=== PATIENT | female | born 1945 | race Two or more races ===

== ENCOUNTER 2017-06-30 15:49 | Outpatient (CLI) | payer OTHER ==
[~2017-06-30 15:49] MED LIST: ASA81 MG PO; COREG CR10 MG PO; GLUCOPHAGE XR500 MG PO; LISINOPRIL20 MG PO; NEURONTIN300 MG PO; PLAVIX75 MG PO; PRAVACHOL80 MG PO; PRILOSEC10 MG PO
== END 2017-06-30 15:59 | disposition home or self-care (01) ==
LOC: RAD 15:49
DX: M25.512 Pain in left shoulder (principal)

== ENCOUNTER 2017-08-06 14:11 | Outpatient (CLI) | payer OTHER | END 2017-08-06 14:41 | disposition home or self-care (01) | LOC: NUCLEAR 14:11 | DX: E78.2 Mixed hyperlipidemia (principal); I25.2 Old myocardial infarction; I10 Essential (primary) hypertension; M85.80 Other specified disorders of bone density and structure, unspecified site ==

== ENCOUNTER 2018-02-04 06:07 | Emergency (ER) | payer OTHER ==
[~2018-02-04] VITALS: Ht 152.4 cm; Wt 65.8 kg
== END 2018-02-05 11:50 | disposition designated cancer center or children's hospital (05) ==
LOC: ER 06:07
DX: I21.4 Non-ST elevation (NSTEMI) myocardial infarction (principal); I24.9 Acute ischemic heart disease, unspecified; I10 Essential (primary) hypertension; S00.83XA Contusion of other part of head, initial encounter; W18.39XA Other fall on same level, initial encounter; Y93.89 Activity, other specified; Y92.091 Bathroom in other non-institutional residence as the place of occurrence of the external cause; Y99.8 Other external cause status
CPT/HCPCS: G0378; G0379; 93005; 93306; 70450

== ENCOUNTER 2018-02-24 11:01 | Outpatient (CLI) | payer OTHER | END 2018-02-24 11:06 | disposition home or self-care (01) | LOC: MAMO-SONO 11:01 | DX: Z12.31 Encounter for screening mammogram for malignant neoplasm of breast (principal); Z12.39 Encounter for other screening for malignant neoplasm of breast ==

== ENCOUNTER 2018-03-09 13:53 | Outpatient (CLI) | payer OTHER | END 2018-03-09 13:59 | disposition home or self-care (01) | LOC: RAD 13:53 | DX: M43.17 Spondylolisthesis, lumbosacral region (principal); M51.37 Other intervertebral disc degeneration, lumbosacral region ==

== ENCOUNTER 2018-04-05 10:01 | Outpatient (CLI) | payer OTHER | END 2018-04-05 10:14 | disposition home or self-care (01) | LOC: NUCLEAR 10:01 | DX: I51.81 Takotsubo syndrome (principal); I52 Other heart disorders in diseases classified elsewhere ==

== ENCOUNTER 2018-12-27 08:36 | Outpatient (CLI) | payer OTHER | END 2018-12-27 15:00 | disposition home or self-care (01) | LOC: RAD 08:36 → LAB 08:36 → RAD 15:00 | DX: M54.2 Cervicalgia (principal); Z12.11 Encounter for screening for malignant neoplasm of colon; I11.9 Hypertensive heart disease without heart failure; E03.8 Other specified hypothyroidism; E78.2 Mixed hyperlipidemia ==

== ENCOUNTER 2019-10-31 07:58 | Outpatient (CLI) | payer OTHER | END 2019-10-31 07:59 | disposition home or self-care (01) | LOC: SONOGRAMA 07:58 → MAMO-SONO 08:45 | PROVIDERS: ATTEND Internal Medicine Gastroenterology | DX: R10.13 Epigastric pain (principal) ==

== ENCOUNTER → 2019-10-31 08:56 | Outpatient (CLI) | payer OTHER | END | disposition home or self-care (01) | LOC: LAB 08:56 | PROVIDERS: ATTEND Internal Medicine Cardiovascular Disease | DX: D64.89 Other specified anemias (principal); R10.84 Generalized abdominal pain; E03.8 Other specified hypothyroidism; E78.49 Other hyperlipidemia; E11.9 Type 2 diabetes mellitus without complications; I10 Essential (primary) hypertension; I25.10 Atherosclerotic heart disease of native coronary artery without angina pectoris; Z13.6 Encounter for screening for cardiovascular disorders; R10.13 Epigastric pain ==

== ENCOUNTER → 2020-02-11 10:11 | Outpatient (CLI) | payer OTHER | END | disposition home or self-care (01) | LOC: LAB 10:11 | PROVIDERS: ATTEND Family Medicine Geriatric Medicine | DX: Z12.11 Encounter for screening for malignant neoplasm of colon (principal); I11.9 Hypertensive heart disease without heart failure; E78.2 Mixed hyperlipidemia; E11.42 Type 2 diabetes mellitus with diabetic polyneuropathy; J32.1 Chronic frontal sinusitis ==

== ENCOUNTER → 2020-03-21 14:54 | Outpatient (CLI) | payer OTHER | END | disposition home or self-care (01) | LOC: LAB 14:54 | PROVIDERS: ATTEND Family Medicine Geriatric Medicine | DX: N39.0 Urinary tract infection, site not specified (principal); Z12.11 Encounter for screening for malignant neoplasm of colon ==

== ENCOUNTER 2020-03-26 13:37 | Outpatient (CLI) | payer OTHER | END 2020-03-26 13:43 | disposition home or self-care (01) | LOC: MAMO-SONO 13:37 | PROVIDERS: ATTEND Family Medicine Geriatric Medicine | DX: Z12.31 Encounter for screening mammogram for malignant neoplasm of breast (principal); N64.4 Mastodynia ==

== ENCOUNTER 2022-01-15 00:06 | Emergency (ER) | payer OTHER ==
[~2022-01-15] VITALS: Ht 152.4 cm; Wt 66.7 kg
== END 2022-01-15 04:51 ==
LOC: ER 00:06
DX: I11.9 Hypertensive heart disease without heart failure (principal); E11.9 Type 2 diabetes mellitus without complications

== ENCOUNTER 2022-08-15 19:44 | Emergency (ER) | payer OTHER ==
[~2022-08-15] VITALS: Ht 152.4 cm; Wt 59.0 kg
[2022-08-15] MEDS ORDERED: ZOLOFT25 MG (19:57)
== END 2022-08-15 21:51 | disposition home or self-care (01) ==
LOC: ER 19:44
DX: K29.70 Gastritis, unspecified, without bleeding (principal); I51.81 Takotsubo syndrome

== ENCOUNTER 2022-09-15 11:50 | Outpatient (CLI) | payer OTHER ==
[~2022-09-15 11:50] MED LIST changes: +ZOLOFT25 MG
== END 2022-09-15 11:58 | disposition home or self-care (01) ==
LOC: RAD 11:50
DX: I70.0 Atherosclerosis of aorta (principal)

== ENCOUNTER 2023-02-26 11:47 | Outpatient (CLI) | payer OTHER | END 2023-02-26 11:50 | disposition home or self-care (01) | LOC: NUCLEAR 11:47 | PROVIDERS: ATTEND Specialist | DX: M81.0 Age-related osteoporosis without current pathological fracture (principal) ==

== ENCOUNTER 2023-05-28 06:12 | Inpatient (IN) | payer OTHER ==
[~2023-05-28] VITALS: Ht 162.6 cm; Wt 74.8 kg
[2023-05-28 09:49] LABS: HEMATOCRIT 36.9 % (36.0-45.00); HEMOGLOBIN 12.3 g/dL (12.0-15.00); MEAN CELL VOLUME 86.7 fL (80.00-100.00); MEAN CORPUSCULAR HEMOGLOBIN 28.8 pg (27.00-32.0); MEAN CORPUSCULAR HGB CONC 33.2 g/dl (32.0-36.0); PLATELET COUNT 285 K/uL (150-450); RED BLOOD COUNT 4.26 M/uL (4.00-6.00); RED CELL DISTRIBUTION WIDTH 15.3 % (11.5-14.5)
[2023-05-28 10:16] LABS: ALBUMIN 3.5 gm/dL (3.4-5.0); BILIRUBIN TOTAL 0.32 mg/dL (0.3-1.2); CALCIUM 9.3 mg/dL (8.5-10.1); CREATININE SERUM 0.68 mg/dL (0.55-1.02); GFR 83.68; GLOBULINA 4.1 G/DL (2.4-3.5); POTASSIUM 3.92 mEq/L (3.5-5.1); TOTAL PROTEIN 7.6 gm/dL (6.4-8.2)
[2023-05-28 12:05] LABS: INR 1.01; PARTIAL THROMBOPLASTIN TIME 28.2 SECONDS (22.0-34.0); PROTHROMBIN TIME 10.6 SECONDS (9.0-11.5)
[2023-05-28 12:13] LABS: ALT/SGPT 24 U/L (12-78); AST/SGOT 21 U/L (15-37); LDH 206 U/L (84-246); PHOSPHOKINASE CREATININE 95 U/L (26-192)
[2023-05-28 19:59] LABS: URINE APPEARANCE Clear; URINE BILIRRUBIN Negative (NEGATIVE); URINE BLOOD Trace; URINE COLOR Yellow; URINE GLUCOSE Negative (NEGATIVE); URINE LEUKOCYTE Trace; URINE NITRATE Negative; URINE PROTEIN Negative (NEGATIVE); URINE UROBILINOGEN 0.2 E.U./dl
[2023-05-28 20:03] LABS: URINE BACTERIA 27.7 uL (0.0-1933); URINE EPITHELIAL CELLS 2.7 uL (0.0-38.8); URINE RBC 18.1 uL (0.0-20.8); URINE WBC 12.9 uL (0.0-23.2)
[2023-05-28 20:19] LABS: URINE CRYSTALS FEW /HPF
[2023-05-31 20:52] LABS: HEMATOCRIT 31.5 % (36.0-45.00); HEMOGLOBIN 10.6 g/dL (12.0-15.00); MEAN CELL VOLUME 86.1 fL (80.00-100.00); MEAN CORPUSCULAR HGB CONC 33.7 g/dl (32.0-36.0); PLATELET COUNT 212 K/uL (150-450); RED BLOOD COUNT 3.66 M/uL (4.00-6.00); RED CELL DISTRIBUTION WIDTH 15.2 % (11.5-14.5)
[2023-05-31 21:01] LABS: INR 1.1; PROTHROMBIN TIME 11.5 SECONDS (9.0-11.5)
[2023-05-31 21:09] LABS: ALBUMIN 2.6 gm/dL (3.4-5.0); BILIRUBIN TOTAL 0.5 mg/dL (0.3-1.2); CREATININE SERUM 0.59 mg/dL (0.55-1.02); GFR 98.58; GLOBULINA 3.3 G/DL (2.4-3.5); POTASSIUM 3.45 mEq/L (3.5-5.1); TOTAL PROTEIN 5.9 gm/dL (6.4-8.2)
== END 2023-06-01 11:30 | disposition designated cancer center or children's hospital (05) | DRG 282 ==
LOC: ER 06:12 → ICU-2 19:23 → ICU 05-30 00:53
PROVIDERS: General Practice; Internal Medicine; ADMIT Internal Medicine; ATTEND Internal Medicine
PROC: B246ZZZ Ultrasonography of Right and Left Heart (ICD-10-PCS; principal; 2023-05-28)
PROC: 3E0F7SF Introduction of Other Gas into Respiratory Tract, Via Natural or Artificial Opening (ICD-10-PCS; 2023-05-28)
PROC: 4A12X4Z Monitoring of Cardiac Electrical Activity, External Approach (ICD-10-PCS; 2023-05-28)
DX: I24.9 Acute ischemic heart disease, unspecified (principal); I21.4 Non-ST elevation (NSTEMI) myocardial infarction; I11.9 Hypertensive heart disease without heart failure; R10.13 Epigastric pain; E11.9 Type 2 diabetes mellitus without complications; Z79.84 Long term (current) use of oral hypoglycemic drugs